=== PATIENT | female | born 1995 | race Caucasian/White ===

== ENCOUNTER 2017-05-30 23:07 | Emergency (ER) | payer MEDICAID, OTHER ==
[2017-05-30 23:56] LABS: HCG,QUALITATIVE URINE NEGATIVE (NEGATIVE)
[2017-05-30 23:57] LABS: SQUAMOUS EPITHIAL 7 /hpf (0-5); URINE BACTERIA RARE (<OCC); URINE BILIRUBIN NEGATIVE (NEGATIVE); URINE BLOOD NEGATIVE (NEGATIVE); URINE CLARITY Clear (Clear); URINE COLOR Yellow (YELLOW); URINE GLUCOSE (UA) NORMAL (Normal); URINE LEUKOCYTE ESTERASE NEG Leu/uL (Negative); URINE NITRATE NEGATIVE (NEGATIVE); URINE PROTEIN NEGATIVE (NEGATIVE)
[2017-05-31] MEDS ORDERED: Sodium Chloride 0.9% 1,000 ML IV ONE (00:04)
--- NOTE | 2017-05-31 00:04 | C.PDOC ---
History Of Present Illness Patient presents to the ED with complaints of sudden onset of nausea and vomiting beginning at 4pm today. Patient states she had hash browns for breakfast but currently is unable to tolerate PO. Patient denies fever, diarrhea , or abdominal pain. Time Seen by Provider: 05/31/17 00:04 Chief Complaint (Nursing): Abdominal Pain History Per: Patient History/Exam Limitations: no limitations Onset/Duration Of Symptoms: Hrs (since 4pm ) Current Symptoms Are (Timing): Still Present Severity: Moderate Pain Scale Rating Of: 4 Radiation Of Pain To:: None Associated Symptoms: Nausea, Vomiting. denies: Fever, Chills, Diarrhea Last Bowel Movement: Yesterday Recent travel outside of the [place]: No Additional History Per: Family Abnormal Vaginal Bleeding: No Past Medical History Reviewed: Historical Data, Nursing Documentation, Vital Signs Vital Signs: Last Vital Signs Temp 99.9 F H 05/30/17 23:40 Pulse 105 H 05/30/17 23:40 Resp 18 05/30/17 23:40 BP 112/70 05/30/17 23:40 Pulse Ox 98 05/31/17 04:13 Family History: States: No Known Family Hx - Social History Hx Alcohol Use: Yes Hx Substance Use: No - Immunization History Hx Influenza Vaccination: No Review Of Systems Constitutional: Negative for: Fever, Chills Eyes: Negative for: Redness ENT: Negative for: Throat Pain Cardiovascular: Negative for: Chest Pain, Palpitations Respiratory: Negative for: Cough, Shortness of Breath Gastrointestinal: Positive for: Nausea, Vomiting. Negative for: Abdominal Pain , Diarrhea Genitourinary: Negative for: Dysuria Musculoskeletal: Negative for: Back Pain Skin: Negative for: Rash, Lesions, Jaundice Neurological: Negative for: Weakness, Headache Psych: Negative for: Anxiety Physical Exam - Physical Exam Appears: Non-toxic, No Acute Distress Skin: Warm, Dry Head: Normacephalic Eye(s): bilateral: Normal Inspection Oral Mucosa: Moist Throat: No Erythema Neck: Supple Chest: Symmetrical, No Deformity Cardiovascular: Rhythm Regular Respiratory: No Rales, No Rhonchi, No Wheezing Gastrointestinal/Abdominal: Soft, Tenderness (diffuse tenderness mostly in the RLQ ), No Distention, No Guarding, No Rebound Extremity: Normal ROM, No Tenderness Extremity: Bilateral: Atraumatic, Normal Color And Temperature, Normal ROM Neurological/Psych: Oriented x3 ED Course And Treatment - Laboratory Results Result Diagrams: 05/31/17 00:09 05/31/17 00:09 O2 Sat by Pulse Oximetry: 98 (room air ) Pulse Ox Interpretation: Normal Reevaluation Time: 04:10 Reassessment Condition: Improved Disposition Counseled Patient/Family Regarding: Studies Performed, Diagnosis, Need For Followup, Rx Given - Disposition Referrals: [facility] [Outside] [facility] [Outside] Disposition: HOME/ ROUTINE Disposition Time: 00:04 Condition: FAIR Prescriptions: Metronidazole [Flagyl] 500 mg PO TID #21 tablet Ondansetron ODT [Zofran ODT] 1 odt PO BID PRN #10 odt PRN Reason: Nausea/Vomiting Instructions: Abdominal Pain (ED), Enteritis (ED) - Clinical Impression Clinical Impression: Abdominal pain, Enteritis - Scribe Statement The provider has reviewed the documentation as recorded by the Scribe Mia Spears All medical record entries made by the Scribe were at my direction and personally dictated by me. I have reviewed the chart and agree that the record accurately reflects my personal performance of the history, physical exam, medical decision making, and the department course for this patient. I have also personally directed, reviewed, and agree with the discharge instructions and disposition.
[2017-05-31 00:11] LABS: BASO % 0.3 % (0.0-2.0); EOS % 0.3 % (0.0-4.0); HEMOGLOBIN 12.7 g/dL (11.0-16.0); LYMPH # 0.4 K/uL (1.0-4.3); LYMPH % 2.6 % (20.0-40.0); MEAN CELL VOLUME 84.9 fL (81.0-99.0); MEAN CORPUSCULAR HEMOGLOBIN 28.3 pg (27.0-31.0); MEAN CORPUSCULAR HGB CONC 33.3 g/dL (33.0-37.0); MONO # 0.4 K/uL (0.0-0.8); MONO % 3.2 % (0.0-10.0); NEUT # 13.3 K/uL (1.8-7.0); NEUT % 93.6 % (50.0-75.0); PLATELET COUNT 247 K/uL (130-400); RBC 4.49 Mil/uL (3.80-5.20); RED CELL DISTRIBUTION WIDTH 12.4 % (11.5-14.5); WHITE BLOOD COUNT 14.2 K/uL (4.8-10.8)
[2017-05-31] MEDS ORDERED: Sodium Chloride 0.9% 1,000 ML ONE (00:16)
[2017-05-31] MEDS ORDERED: Piperacillin/Tazobact 3.375 gm 100 ML IVPB STA (00:24)
[2017-05-31 00:27] LABS: ALBUMIN 4.4 g/dL (3.5-5.0)
[2017-05-31 00:28] LABS: INR 1.1; PROTHROMBIN TIME 12.2 SECONDS (9.7-12.2)
[2017-05-31 00:30] LABS: AST/SGOT 21 U/L (14-36); GFR AFRICAN-AMERICAN > 60; GFR NON-AFRICAN AMERICAN > 60
[2017-05-31 00:31] LABS: ALB/GLOB RATIO 1.3 (1.0-2.1); ALT/SGPT 14 U/L (9-52); BLOOD UREA NITROGEN 13 mg/dL (7-17); CALCIUM 9.1 mg/dl (8.6-10.4); LIPASE 24 U/L (23-300)
[2017-05-31] MEDS ORDERED: DiphenhydrAMINE 50 mg/ml Inj IVP STA (00:36)
[2017-05-31] MEDS ORDERED: Piperacillin/Tazobact 3.375 gm 100 ML IVPB ONE (00:56)
[2017-05-31] MEDS ORDERED: Iodixanol 320 MG/ML 100 ML BOTTLE IV ONE (01:03)
[2017-05-31] MEDS ORDERED: DiphenhydrAMINE 50 mg/ml Inj ONE (01:26)
[2017-05-31 01:29] LABS: BANDS 5 % (0-2); LYMPHOCYTE 2 % (20-40); MONOCYTE 2 % (0-10); NEUTROPHIL 91 % (50-75); PLATELET ESTIMATE NORMAL (NORMAL); TOTAL CELLS COUNTED 100
[2017-05-31] MEDS ORDERED: Iodixanol 320 mg/ml 150 ml Bottle IV ONE ×2 (02:01→02:02)
[2017-05-31] MEDS ORDERED: Iodixanol 320 MG/ML 200 ML BOTTLE IV ONE (02:02)
--- NOTE | 2017-05-31 02:53 | CT ---
EXAM: CT Angiography Chest With Intravenous Contrast CLINICAL HISTORY: 22 years old, female; Pain; Chest pain and other: Abdomen; Additional info: Rlq pain, leukocytosis TECHNIQUE: Axial computed tomographic angiography images of the chest with intravenous contrast using pulmonary embolism protocol. This CT exam was performed using one or more of the following dose reduction techniques: automated exposure control, adjustment of the mA and/or kV according to patient size, and/or use of iterative reconstruction technique. MIP reconstructed images were created and reviewed. Coronal and sagittal reformatted images were created and reviewed. CONTRAST: 100 mL of [id number] administered intravenously. COMPARISON: No relevant prior studies available. FINDINGS: Pulmonary arteries: No pulmonary embolism. Aorta: No thoracic aortic aneurysm. Lungs: No mass. No consolidation. Pleural spaces: No significant effusion. No pneumothorax. Heart: No cardiomegaly. No significant pericardial effusion. No evidence of right heart dysfunction. Bones: No acute fracture. Lymph nodes: No pathologically enlarged lymph nodes. IMPRESSION: No pulmonary embolism. The lungs are clear.
--- NOTE | 2017-05-31 03:01 | CT ---
EXAM: CT Abdomen and Pelvis With Intravenous Contrast CLINICAL HISTORY: 22 years old, female; Pain; Abdominal pain and other: Lower right abd; Additional info: Abd pain. Lower right TECHNIQUE: Axial computed tomography images of the abdomen and pelvis with intravenous contrast. This CT exam was performed using one or more of the following dose reduction techniques: automated exposure control, adjustment of the mA and/or kV according to patient size, and/or use of iterative reconstruction technique. Coronal and sagittal reformatted images were created and reviewed. CONTRAST: 100 mL of [id number] administered intravenously. COMPARISON: None. FINDINGS: Lower thorax: The bilateral lung bases are clear. ABDOMEN: Liver: No acute findings. Gallbladder and bile ducts: The gallbladder is decompressed. No calcified stones. No significant intra- or extrahepatic biliary ductal dilation. Pancreas: Enhances homogeneously. No ductal dilation. No discrete mass. Spleen: No acute findings. Adrenals: No acute findings. Kidneys and ureters: No acute findings. No hydronephrosis or renal calculi. No discrete solid mass. PELVIS: Bladder: No acute findings. Reproductive: No acute findings. Appendix: The air filled appendix is of normal caliber (series 8, image 61; series 604, image 61) . ABDOMEN and PELVIS: Stomach and bowel: No obstruction. Mural thickening of multiple loops of small bowel, without surrounding inflammation or fluid to confirm an acute enteritis. Peritoneum: As above. Lymph nodes: No pathologically enlarged lymph nodes. Vasculature: Unremarkable. Bones: No acute fracture. IMPRESSION: Normal appendix. Mural thickening of multiple loops of small bowel, without surrounding inflammation or fluid to confirm an acute enteritis.
[2017-05-31 04:51] VITALS: BP 106/67; PULSE 69; RESP 16; TEMP 98.5; O2SAT 97
== END 2017-05-31 04:59 | disposition home or self-care (01) ==
LOC: C.ER 23:07
DX: K52.9 Noninfective gastroenteritis and colitis, unspecified (principal); R10.9 Unspecified abdominal pain
CPT/HCPCS: 71275; 74177; 80053; 81001; 83690; 84703; 85025; 85610; 85730; 96365; 96375; 99284; J1200; J2405; J2543; J2930; J7040; Q9965; Q9966; Q9967

== ENCOUNTER 2018-02-03 02:42 | Emergency (ER) | payer SELFPAY ==
[2018-02-03] MEDS ORDERED: Sodium Chloride 0.9% 1,000 ML IV ONE (02:59)
--- NOTE | 2018-02-03 02:59 | C.PDOC ---
History Of Present Illness Patient presents to the ER with a complaint of sudden onset of a sharp, cramping , right lower abdominal pain that began at approximately 21:30, associated with one episode of vomiting. Denies fever, chills, dysuria, or vaginal bleeding. Time Seen by Provider: 02/03/18 02:59 Chief Complaint (Nursing): Abdominal Pain History Per: Patient History/Exam Limitations: no limitations Onset/Duration Of Symptoms: Hrs, Sudden Onset Current Symptoms Are (Timing): Still Present Severity: Moderate Pain Scale Rating Of: 5 Location Of Pain/Discomfort: RLQ Radiation Of Pain To:: None Quality Of Discomfort: Sharp, Cramping Associated Symptoms: Vomiting. denies: Fever, Chills, Urinary Symptoms Exacerbating Factors: None Alleviating Factors: None Recent travel outside of the [place]: No Additional History Per: Patient Abnormal Vaginal Bleeding: No Past Medical History Reviewed: Historical Data, Nursing Documentation, Vital Signs Vital Signs: Last Vital Signs Temp 98.4 F 02/03/18 04:42 Pulse 70 02/03/18 04:42 Resp 20 02/03/18 04:42 BP 139/80 02/03/18 04:42 Pulse Ox 98 02/03/18 04:42 Family History: States: No Known Family Hx - Social History Hx Alcohol Use: Yes Hx Substance Use: No - Immunization History Hx Tetanus Toxoid Vaccination: No Hx Influenza Vaccination: No Hx Pneumococcal Vaccination: No Review Of Systems Constitutional: Negative for: Fever, Chills Cardiovascular: Negative for: Chest Pain Respiratory: Negative for: Shortness of Breath Gastrointestinal: Positive for: Vomiting, Abdominal Pain Genitourinary: Negative for: Dysuria, Vaginal Bleeding Skin: Negative for: Rash Neurological: Negative for: Weakness Psych: Negative for: Anxiety Physical Exam - Physical Exam Appears: Non-toxic, Other (Mild discomfort) Skin: Warm, Dry Head: Normacephalic Eye(s): bilateral: Normal Inspection Oral Mucosa: Moist Neck: Supple Chest: Symmetrical, No Tenderness Cardiovascular: Rhythm Regular Respiratory: No Rales, No Rhonchi, No Wheezing Gastrointestinal/Abdominal: Soft, Tenderness (RLQ), Guarding (Voluntary), Rebound (Mild) Back: Normal Inspection, No CVA Tenderness Extremity: Normal ROM Extremity: Bilateral: Atraumatic Neurological/Psych: Oriented x3 Gait: Steady ED Course And Treatment - Laboratory Results Result Diagrams: 02/03/18 03:09 02/03/18 03:09 O2 Sat by Pulse Oximetry: 99 (Room air) Pulse Ox Interpretation: Normal Progress Note: Blood work and urinalysis ordered. Benadryl, pepcid, solumedrol, zofran, zosyn, and IV fluids administered. Reevaluation Time: 05:30 Reassessment Condition: Improved Disposition Counseled Patient/Family Regarding: Studies Performed, Diagnosis, Need For Followup, Rx Given - Disposition Referrals: [facility] [Outside] [facility] [Outside] Disposition: HOME/ ROUTINE Disposition Time: 02:59 Condition: FAIR Additional Instructions: Please return if symptoms recur Prescriptions: Levofloxacin [Levaquin] 500 mg PO DAILY #10 tablet Ondansetron ODT [Zofran ODT] 1 odt PO BID PRN #6 odt PRN Reason: Nausea/Vomiting traMADol [Ultram] 50 mg PO QID #20 tab Instructions: Urinary Tract Infection, Adult (DC) Forms: [facility] (Lao), Work Excuse - Clinical Impression Clinical Impression: Abdominal pain, UTI (urinary tract infection), Mesenteric adenitis - Scribe Statement The provider has reviewed the documentation as recorded by the Scribe [place]f [place] All medical record entries made by the Scribe were at my direction and personally dictated by me. I have reviewed the chart and agree that the record accurately reflects my personal performance of the history, physical exam, medical decision making, and the department course for this patient. I have also personally directed, reviewed, and agree with the discharge instructions and disposition.
[2018-02-03 03:05] LABS: SQUAMOUS EPITHIAL 3 /hpf (0-5); URINE BACTERIA RARE (<OCC); URINE BILIRUBIN NEGATIVE (NEGATIVE); URINE BLOOD 3+ (NEGATIVE); URINE CLARITY Hazy (Clear); URINE COLOR Yellow (YELLOW); URINE GLUCOSE (UA) NORMAL (Normal); URINE LEUKOCYTE ESTERASE TRACE Leu/uL (Negative); URINE PROTEIN NEGATIVE (NEGATIVE); URINE UROBILINOGEN NORMAL mg/dL (0.2-1.0)
[2018-02-03] MEDS ORDERED: DiphenhydrAMINE 50 mg/ml Inj IVP STA (03:06)
[2018-02-03 03:13] LABS: BASO % 0.2 % (0.0-2.0); EOS # 0.1 K/uL (0.0-0.7); EOS % 0.4 % (0.0-4.0); HEMOGLOBIN 12.6 g/dL (11.0-16.0); LYMPH # 1.1 K/uL (1.0-4.3); MEAN CELL VOLUME 84.9 fL (81.0-99.0); MEAN CORPUSCULAR HEMOGLOBIN 28.8 pg (27.0-31.0); MEAN CORPUSCULAR HGB CONC 33.9 g/dL (33.0-37.0); MEAN PLATELET VOLUME 9.4 fL (7.2-11.7); MONO # 0.9 K/uL (0.0-0.8); MONO % 4.3 % (0.0-10.0); NEUT # 19.2 K/uL (1.8-7.0); NEUT % 90.1 % (50.0-75.0); PLATELET COUNT 287 K/uL (130-400); RBC 4.38 Mil/uL (3.80-5.20); RED CELL DISTRIBUTION WIDTH 12.8 % (11.5-14.5); WHITE BLOOD COUNT 21.3 K/uL (4.8-10.8)
[2018-02-03] MEDS ORDERED: DiphenhydrAMINE 50 mg/ml Inj ONE (03:16)
[2018-02-03 03:20] LABS: INR 1.2
[2018-02-03] MEDS ORDERED: Piperacillin/Tazobact 3.375 GM in Sodium Chloride 100 ML IVPB STA (03:20)
[2018-02-03 03:24] LABS: ALB/GLOB RATIO 1.3 (1.0-2.1); ALBUMIN 4.7 g/dL (3.5-5.0); ALT/SGPT 40 U/L (9-52); AST/SGOT 28 U/L (14-36); BLOOD UREA NITROGEN 13 mg/dL (7-17); CALCIUM 9.6 mg/dl (8.6-10.4); GFR AFRICAN-AMERICAN > 60; GFR NON-AFRICAN AMERICAN > 60; LIPASE 27 U/L (23-300)
[2018-02-03] MEDS ORDERED: Piperacill/Tazo 3.375gm in Dex 3.375 GM/50 ML BAG IVPB STA (03:39)
[2018-02-03 03:48] LABS: BANDS 2 % (0-2); LYMPHOCYTE 4 % (20-40); MONOCYTE 4 % (0-10); NEUTROPHIL 86 % (50-75); PLATELET ESTIMATE NORMAL (NORMAL); REACTIVE LYMPHOCYTES 4 % (0-0); TOTAL CELLS COUNTED 100
[2018-02-03] MEDS ORDERED: Iodixanol 320 MG/ML 100 ML BOTTLE IV ONE (04:20)
[2018-02-03] MEDS ORDERED: Morphine 4 MG/ML VIAL ONE (04:40)
[2018-02-03 04:44] VITALS: RESP 20; TEMP 98.4
--- NOTE | 2018-02-03 05:08 | CT ---
EXAM: CT Abdomen and Pelvis With Intravenous Contrast CLINICAL HISTORY: 22 years old, female; Pain; Abdominal pain; Patient HX: 7 images sent; Additional info: Rlq pain TECHNIQUE: Axial computed tomography images of the abdomen and pelvis with intravenous contrast. All CT scans at this facility use one or more dose reduction techniques, viz.: automated exposure control; ma/kV adjustment per patient size (including targeted exams where dose is matched to indication; i.e. head); or iterative reconstruction technique. 734 images are submitted. Coronal and sagittal reformatted images were created and reviewed. CONTRAST: 100 mL of [id number] administered intravenously. COMPARISON: CT - ABD PELVIS IV CONTRAST ONLY 2017-05-31 02:38 FINDINGS: Lower thorax: Mild right and trace left lower lobe parenchymal infiltrate. Correlation with clinical data is recommended if atelectasis versus pneumonia is clinically suspected. ABDOMEN: Liver: Fatty liver.There is a focal liver hypodensity that cannot be further characterized on the current examination. Gallbladder and bile ducts: Unremarkable. No ductal dilation. Pancreas: Unremarkable. No mass. No ductal dilation. Spleen: Left upper quadrant splenules. Unremarkable spleen. Adrenals: Unremarkable. No mass. Kidneys and ureters: Unremarkable. No solid mass. No hydronephrosis. Stomach and bowel: Diverticulosis. There are nonspecific fluid filled small bowel loops. These findings can represent ileus versus enteritis versus slow transit versus peristalsis. Appendix: Normal appendix. PELVIS: Bladder: Unremarkable. Reproductive: Endometrial stripe thickening and/or fluid. Bilateral ovarian follicles. ABDOMEN and PELVIS: Intraperitoneal space: Small amount of free pelvic fluid. No free air. Bones/joints: No acute fracture. No dislocation. Soft tissues: Unremarkable. Vasculature: Unremarkable. No abdominal aortic aneurysm. Lymph nodes: Multiple subcentimeter mesenteric and ileocolic lymph nodes. Findings are nonspecific but may represent mesenteric adenitis. IMPRESSION: 1. Mild right and trace left lower lobe parenchymal infiltrate. Correlation with clinical data is recommended if atelectasis versus pneumonia is clinically suspected. 2. Small amount of free pelvic fluid.
[2018-02-03 05:37] VITALS: O2SAT 99
[2018-02-03 05:49] VITALS: BP 132/84; PULSE 92
== END 2018-02-03 06:04 | disposition home or self-care (01) ==
LOC: SUPCPDRO 02:42 → C.ER 02:42
DX: N39.0 Urinary tract infection, site not specified (principal); I88.0 Nonspecific mesenteric lymphadenitis; R10.30 Lower abdominal pain, unspecified
CPT/HCPCS: 74177; 80053; 81001; 83690; 84703; 85025; 85610; 85730; 96361; 96365; 96375; 99285; J1200; J1885; J2270; J2405; J2543; J2930; J7040; Q9967

== ENCOUNTER 2019-01-10 12:46 | Emergency (ER) | payer MEDICAID, OTHER ==
[2019-01-10 13:33] LABS: SQUAMOUS EPITHIAL 56 /hpf (0-5); URINE BACTERIA RARE (<OCC); URINE BILIRUBIN NEGATIVE (NEGATIVE); URINE BLOOD NEGATIVE (NEGATIVE); URINE CLARITY Hazy (Clear); URINE COLOR Amber (YELLOW); URINE GLUCOSE (UA) NORMAL (Normal); URINE LEUKOCYTE ESTERASE 2+ Leu/uL (Negative); URINE PROTEIN NEGATIVE (NEGATIVE); URINE UROBILINOGEN NORMAL mg/dL (0.2-1.0)
--- NOTE | 2019-01-10 14:12 | OBHP ---
Datetime: 01/10/2019 13:19 IP Adm Impression: , intrauterine IP Chief Complaint Other: Abdominal pain Admit Comment, IP Provider: Patient is a 23 year old at 31w2d SCOTT 03/12/19 by LMP who presents t jose angel for decreased movement that started this morning. Patient states that baby is now moving n ormally. She also reports having right sided abdominal cramping that started to get worse today. Pain is intermittent and rates the pain a 6/10 on pain scale. Last intercourse was two weeks ago. She den ies any VB or LOF. Issues: Denies OB Hx: IAB x 2 with D+C [employer] Hx: LMP 05/16/18 [place]: 12 x regular x 5 days Denies ovarian cysts, fibroids, abnormal pap smears Hx of gonorrhea at 9 weeks IUP, treated Allergies: Shrimp Medications: PNV Medical History: Denies Surgical History: D+C x2 Social History: Denies alcohol, tobacco, drug use Family History: Mother - Hypertension; Father - unknown PE: See above A/P: 23 year old at 31w2d who presents with decreased FM and abdominal pain -Not in labor -NST reactive, Category I tracing -Will send Urinalysis -Plan discussed with Dr Peggy Evans DO PGY-2 FHR - Baseline A Provider: 140 Contraction Comments Provider: none Comments, ACOG Physical Exam: Vital signs reviewed Gen: NAD, AAOx3 Abdomen: Soft, gravid, fundal height Ext: No clubbing, cyanosis, edema SVE: closed/thick/high EGA AdmitDate IP: 31.2 Vital Signs Provider: Reviewed IP Chief Complaint: Decreased movement; Other NICHD Variability Prov Fetus A: Moderate 6-25bpm NICHD Accel Fetus A IP Provider: 15X15 FHR Category Provider Fetus A: Category I NICHD Decel Fetus A IP Provider: None Dilatation, Provider: closed
--- NOTE | 2019-01-10 14:13 | OBDCSUM ---
Datetime: 01/10/2019 13:43 Discharged to, Provider: Home Follow up at, Provider: with [facility] Disch Instr Activity: Normal activity Disch Instr Diet: Regular Discharge Time: 01/10/2019 14:02 Follow up in weeks, Provider: 2-3 Disch Referrals: None Discharge Comment, Provider: janelle marquez hy f/u in 2-3 Discharge Diagnosis Prov Other: 33we nst
[2019-01-10 18:25] VITALS: BP 123/70; PULSE 88; RESP 17; TEMP 99.7; O2SAT 99
== END 2019-01-10 14:21 | disposition home or self-care (01) ==
LOC: C.EROB 12:46
DX: O36.8130 Decreased fetal movements, third trimester, not applicable or unspecified (principal); Z3A.31 31 weeks gestation of pregnancy

== ENCOUNTER 2019-02-14 19:45 | Emergency (ER) | payer OTHER ==
[2019-02-14 20:23] VITALS: BMI 36.8
[2019-02-14 20:49] LABS: SQUAMOUS EPITHIAL 9 /hpf (0-5); URINE AMORPHOUS SEDIMENT RARE /ul (<OCC); URINE BACTERIA OCC (<OCC); URINE BILIRUBIN NEGATIVE (NEGATIVE); URINE BLOOD NEGATIVE (NEGATIVE); URINE CLARITY Hazy (Clear); URINE COLOR Yellow (YELLOW); URINE GLUCOSE (UA) NORMAL (Normal); URINE LEUKOCYTE ESTERASE 1+ Leu/uL (Negative); URINE PROTEIN NEGATIVE (NEGATIVE); URINE UROBILINOGEN NORMAL mg/dL (0.2-1.0)
[2019-02-14] MEDS ORDERED: Lactated Ringer's 1,000 ML IV ONE (20:56)
[2019-02-14 21:32] LABS: EOS # 0.2 K/uL (0.0-0.7); EOS % 2.1 % (0.0-4.0); LYMPH % 13.1 % (20.0-40.0); MEAN CELL VOLUME 83.8 fL (81.0-99.0); MEAN CORPUSCULAR HEMOGLOBIN 28.1 pg (27.0-31.0); MEAN CORPUSCULAR HGB CONC 33.5 g/dL (33.0-37.0); MEAN PLATELET VOLUME 9.9 fL (7.2-11.7); MONO # 0.4 K/uL (0.0-0.8); MONO % 5.6 % (0.0-10.0); NEUT # 6.2 K/uL (1.8-7.0); NEUT % 79.2 % (50.0-75.0); RBC 3.9 Mil/uL (3.80-5.20); RED CELL DISTRIBUTION WIDTH 14.5 % (11.5-14.5); WHITE BLOOD COUNT 7.8 K/uL (4.8-10.8)
[2019-02-14 21:44] LABS: ALB/GLOB RATIO 1.2 (1.0-2.1); ALBUMIN 3.3 g/dL (3.5-5.0); ALT/SGPT 8 U/L (9-52); AST/SGOT 14 U/L (14-36); BLOOD UREA NITROGEN 4 mg/dL (7-17); GFR NON-AFRICAN AMERICAN > 60
[2019-02-14 22:43] LABS: BARBITURATES, UR NEGATIVE (NEGATIVE); BENZODIAZEPINES, UR NEGATIVE (NEGATIVE); OPIATES, UR NEGATIVE (NEGATIVE); PHENCYCLIDINE, UR NEGATIVE (NEGATIVE)
[2019-02-14 22:48] LABS: CREATININE, RANDOM URINE 18.9 mg/dL
--- NOTE | 2019-02-14 23:47 | OBHP ---
Datetime: 02/14/2019 21:30 IP Adm Impression: , intrauterine ; No Active Labor; Intact Membranes IP Chief Complaint Other: Abdominal and Pelvic pain IP Admit Plan: Discharge home Admit Comment, IP Provider: 24 cr[place] female with and IUP at 36.2 weeks and presented with c/o of some generalized abdominal and pelvic pain. Admitted to adequate FM and denies LOF, VB or VD. Denies urinary or bowel complaints. PMHx and PSHx: Negative Meds PNV NKDA + Allergy to Shrimp Meds: PNV Social Hx: Negative x 3 PE See above A/P UA and blood work negative NST reactive UC's irregular and moderately painful. Declined pain medication One dose of 'terbutaline given after IV Hydration and contractions ressolved Pt remained stable Pelvic Type - PN: Adequate Extremities - PN: Normal Abdomen - PN: Normal Back - PN: Normal Breast - PN: Not Done Lungs - PN: Normal Heart - PN: Normal Thyroid - PN: Normal Neurologic - PN: Normal HEENT - PN: Normal General - PN: Normal Presentation-Admit: Vertex FHR - Baseline A Provider: 130 Membranes, Provider: Intact Contraction Comments Provider: Irregular Gestation - Est Wks by US: 36.2 IP Hx Assessment: The History has been Reviewed and is Current EGA AdmitDate IP: 36.2 Vital Signs Provider: Reviewed; Within Normal Limits IP Chief Complaint: Maternal discomfort; Other NICHD Variability Prov Fetus A: Moderate 6-25bpm NICHD Accel Fetus A IP Provider: 10X10 FHR Category Provider Fetus A: Category I NICHD Decel Fetus A IP Provider: None Dilatation, Provider: 0 Effacement, Provider: 30 Station, Provider: -3 Genitourinary Exam: Normal DTRs - PN: Normal
--- NOTE | 2019-02-14 23:52 | OBADHP ---
Datetime: 02/14/2019 21:30 IP Chief Complaint Other: Abdominal and Pelvic pain Admit Comment, IP Provider: 24 crist[place] female with and IUP at 36.2 weeks and presented with c/o of some generalized abdominal and pelvic pain. Admitted to adequate FM and denies LOF, VB or VD. Denies urinary or bowel complaints. PMHx and PSHx: Negative Meds PNV NKDA + Allergy to Shrimp Meds: PNV Social Hx: Negative x 3 PE See above A/P UA and blood work negative NST reactive UC's irregular and moderately painful. Declined pain medication One dose of 'terbutaline given after IV Hydration and contractions ressolved Pt remained stable Pelvic Type - PN: Adequate Extremities - PN: Normal Abdomen - PN: Normal Back - PN: Normal Breast - PN: Not Done Lungs - PN: Normal Heart - PN: Normal Thyroid - PN: Normal Neurologic - PN: Normal HEENT - PN: Normal General - PN: Normal Presentation-Admit: Vertex FHR - Baseline A Provider: 130 Membranes, Provider: Intact Contraction Comments Provider: Irregular Gestation - Est Wks by US: 36.2 IP Hx Assessment: The History has been Reviewed and is Current Vital Signs Provider: Reviewed; Within Normal Limits IP Chief Complaint: Maternal discomfort; Other NICHD Variability Prov Fetus A: Moderate 6-25bpm NICHD Accel Fetus A IP Provider: 10X10 FHR Category Provider Fetus A: Category I NICHD Decel Fetus A IP Provider: None Dilatation, Provider: 0 Effacement, Provider: 30 Station, Provider: -3 Genitourinary Exam: Normal DTRs - PN: Normal EGA AdmitDate IP: 36.2 IP Adm Impression: , intrauterine ; No Active Labor; Intact Membranes IP Admit Plan: Discharge home Datetime: 01/10/2019 13:19 Comments, ACOG Physical Exam: Vital signs reviewed Gen: NAD, AAOx3 Abdomen: Soft, gravid, fundal height Ext: No clubbing, cyanosis, edema SVE: closed/thick/high
--- NOTE | 2019-02-14 23:55 | OBDCSUM ---
Datetime: 02/14/2019 23:50 Discharged to, Provider: Home Follow up at, Provider: [facility] Follow up at, Provider: [facility] Disch Instr Activity: Normal activity; Bedrest Disch Instr Diet: Regular Discharge Instructions, Provider: Routine instructions given Discharge Time: 02/14/2019 23:51 Follow up in weeks, Provider: AM apppointment Follow up in weeks, Provider: 02/15/19 Disch Referrals: None Disch Referrals: None Contraception discussed, Prov: Yes Disch Activity Restrictions: No exercising; No lifting; Minimize stair-climbing; No sexual activity; Nothing in vagina - [place], tampons, douche Discharge Comment, Provider: 24 yo female with and IUP at 36.2 weeks and presented with c/o of some generalized abdominal and pelvic pain. Admitted to adequate FM and denies LOF, VB or VD. Denies urinary or bowel complaints. PMHx and PSHx: Negative Meds PNV NKDA + Allergy to Shrimp Meds: PNV Social Hx: Negative x 3 PE See above A/P UA and blood work negative NST reactive UC's irregular and moderately painful. Declined pain medication One dose of 'terbutaline given after IV Hydration and contractions ressolved Pt remained in stable and satisfactory condition D/C home with labor precautions and verbalized understanding Discharge Diagnosis Prov Other: Irregular contractions Poor pain tolerance Contraception after Delivery: Undecided
[2019-02-15 04:32] VITALS: BP 130/67; PULSE 99; RESP 20; TEMP 98.5; O2SAT 99
== END 2019-02-15 00:10 | disposition home or self-care (01) ==
LOC: C.EROB 19:45
DX: O26.893 Other specified pregnancy related conditions, third trimester (principal); R10.2 Pelvic and perineal pain; R10.84 Generalized abdominal pain; Z3A.36 36 weeks gestation of pregnancy
CPT/HCPCS: 80053; 80324; 80345; 80346; 80349; 80353; 80358; 80361; 81001; 82570; 83615; 83992; 84156; 84550; 85025; 96372; 99283; J3105; J7120

== ENCOUNTER 2019-03-14 09:45 | Emergency (ER) | payer OTHER ==
--- NOTE | 2019-03-14 10:34 | OBHP ---
Datetime: 03/14/2019 10:30 IP Adm Impression: Postterm, intrauterine Admit Comment, IP Provider: at 40+weks came with c/o cts started in am , irrg , 04/06,no vbm, lo f+fm obhx 2 x ta pmh de med pnv all nkda psh de soch de ve /-3 a/p at 40+weeks r/o laborr npo/ivf repeat exam cont close observation Pelvic Type - PN: Adequate Extremities - PN: Normal Abdomen - PN: Normal Back - PN: Normal Breast - PN: Normal Lungs - PN: Normal Heart - PN: Normal Thyroid - PN: Normal Neurologic - PN: Normal HEENT - PN: Normal General - PN: Normal FHR - Baseline A Provider: 130 Contraction Comments Provider: q1-4 EGA AdmitDate IP: 40.5 Vital Signs Provider: Reviewed; Within Normal Limits IP Chief Complaint: Uterine contractions NICHD Variability Prov Fetus A: Moderate 6-25bpm NICHD Accel Fetus A IP Provider: 15X15 FHR Category Provider Fetus A: Category I Dilatation, Provider: 1 Effacement, Provider: 50 Station, Provider: -3 Genitourinary Exam: Normal DTRs - PN: Normal
[2019-03-14 17:05] VITALS: BP 134/71; PULSE 79
--- NOTE | 2019-03-15 11:50 | OBHP ---
Datetime: 03/14/2019 10:30 Admit Comment, IP Provider: at 40+weks came with c/o cts started in am , irrg , 04/06,no vbm, lo f+fm obhx 2 x ta pmh de med pnv all nkda psh de soch de ve /-3 a/p at 40+weeks r/o laborr npo/ivf repeat exam cont close observation 12.30 pt was rexamined ve /3 plan induction on 03/15 labor ins give p hy f
== END 2019-03-14 12:40 | disposition home or self-care (01) ==
LOC: C.EROB 09:45
DX: O47.1 False labor at or after 37 completed weeks of gestation (principal); Z3A.40 40 weeks gestation of pregnancy

== ENCOUNTER 2019-03-15 19:33 | Inpatient (IN) | payer OTHER ==
[2019-03-15 19:52] VITALS: BMI 39.0
[2019-03-15] MEDS ORDERED: Lactated Ringer's 1,000 ML IV ONE (20:16)
[2019-03-15 21:03] LABS: BASO % 0.2 % (0.0-2.0); EOS % 0.5 % (0.0-4.0); HEMOGLOBIN 11.4 g/dL (11.0-16.0); LYMPH # 0.5 K/uL (1.0-4.3); LYMPH % 7.3 % (20.0-40.0); MEAN CELL VOLUME 83.4 fL (81.0-99.0); MEAN CORPUSCULAR HEMOGLOBIN 28.2 pg (27.0-31.0); MEAN CORPUSCULAR HGB CONC 33.8 g/dL (33.0-37.0); MEAN PLATELET VOLUME 10.4 fL (7.2-11.7); MONO # 0.3 K/uL (0.0-0.8); MONO % 4.5 % (0.0-10.0); NEUT % 87.5 % (50.0-75.0); PLATELET COUNT 167 K/uL (130-400); RBC 4.03 Mil/uL (3.80-5.20); RED CELL DISTRIBUTION WIDTH 14.4 % (11.5-14.5); WHITE BLOOD COUNT 6.9 K/uL (4.8-10.8)
--- NOTE | 2019-03-15 21:04 | OBHP ---
Datetime: 03/15/2019 20:47 IP Adm Impression: Postterm, intrauterine IP Admit Plan: Initiate labor induction protocol EGA AdmitDate IP: 40.6 IP Chief Complaint: Scheduled induction of labor
[2019-03-15 21:07] LABS: SQUAMOUS EPITHIAL 11 /hpf (0-5); URINE BACTERIA FEW (<OCC); URINE BILIRUBIN NEGATIVE (NEGATIVE); URINE BLOOD NEGATIVE (NEGATIVE); URINE CLARITY Hazy (Clear); URINE COLOR Yellow (YELLOW); URINE GLUCOSE (UA) NORMAL (Normal); URINE LEUKOCYTE ESTERASE 2+ Leu/uL (Negative); URINE PROTEIN NEGATIVE (NEGATIVE); URINE UROBILINOGEN NORMAL mg/dL (0.2-1.0)
[2019-03-15 21:17] LABS: ALB/GLOB RATIO 1.2 (1.0-2.1); ALBUMIN 3.5 g/dL (3.5-5.0); ALT/SGPT 9 U/L (9-52); AST/SGOT 24 U/L (14-36); BLOOD UREA NITROGEN 5 mg/dL (7-17); CALCIUM 9.1 mg/dl (8.6-10.4); GFR NON-AFRICAN AMERICAN > 60
[2019-03-15 21:18] LABS: BARBITURATES, UR NEGATIVE (NEGATIVE); BENZODIAZEPINES, UR NEGATIVE (NEGATIVE); OPIATES, UR NEGATIVE (NEGATIVE); PHENCYCLIDINE, UR NEGATIVE (NEGATIVE)
[2019-03-15 21:45] LABS: BANDS 1 % (0-2); LYMPHOCYTE 6 % (20-40); MONOCYTE 2 % (0-10); NEUTROPHIL 91 % (50-75); TOTAL CELLS COUNTED 100
[2019-03-15 21:46] LABS: PLATELET ESTIMATE NORMAL (NORMAL)
[2019-03-15] MEDS: Lactated Ringer's 1,000 ML IV SCH (22:15)
--- NOTE | 2019-03-15 23:54 | OBADHP ---
Datetime: 03/15/2019 20:47 Admit Comment, IP Provider: 24 yo female with an IUP at 40.6 weeks and admitted for IOL sec ondary to Postdates. Admits to adequate FM and ocasional contractions. Denies LOF, VB or VD. Denies a ny complications PMHx Negative PSHx TOP x 2 Meds, PNV/Fe NKDA Social HX Admites to marihuana smoking prior to PE as noted above A/P Postdates Not in labor and admitted for IOL Hx of 2 TOP's + THC during care Negative GBS NST Reactive/ No uterine contractions Unfavorable cervix, very posterior and cervidil placed Admit labs done Will continue monitoring Hope to remove cervidil in AM and start Pitocin Pelvic Type - PN: Adequate Extremities - PN: Normal Abdomen - PN: Normal Back - PN: Normal Breast - PN: Not Done Lungs - PN: Normal Heart - PN: Normal Thyroid - PN: Normal Neurologic - PN: Normal HEENT - PN: Normal General - PN: Normal Presentation-Admit: Vertex FHR - Baseline A Provider: 120 Membranes, Provider: Intact Contraction Comments Provider: Ocassional Gestation - Est Wks by US: 40.6 IP Hx Assessment: The History has been Reviewed and is Current Vital Signs Provider: Reviewed IP Chief Complaint: Scheduled induction of labor NICHD Variability Prov Fetus A: Moderate 6-25bpm NICHD Accel Fetus A IP Provider: 10X10 FHR Category Provider Fetus A: Category I NICHD Decel Fetus A IP Provider: None Dilatation, Provider: 1 Effacement, Provider: 50 Station, Provider: -3 Genitourinary Exam: Normal DTRs - PN: Normal EGA AdmitDate IP: 40.6 IP Adm Impression: Postterm, intrauterine IP Admit Plan: Initiate labor induction protocol
--- NOTE | 2019-03-16 10:15 | OBPN ---
Datetime: 03/16/2019 09:12 IP Progress Impression: Reassuring heart rate; Reactive non-stress test IP Informed Consent Obtain: Vaginal Delivery IP Procedures: Sterile Vag Exam IP Progress Plan: Cervical Ripening Membranes, Provider: Intact Contraction Comments Provider: Irregular FHR - Baseline A Provider: 120 Gestation - Est Wks by US: 41.0 Presentation-Admit: Vertex IP Progress Note Comment: Pt seen and examined Slept most of the nite Cervidil removed after 12 hours and no cervical change noted Cervix visualized with a speculum and extremely posterior and to the left VSS Shower this morning and had a light breakfast No complaints Second cervidil placed with difficulty because of cervix position Will continue close monitoring Hope for a vaginal delivery Vital Signs Provider: Reviewed NICHD Accel Fetus A IP Provider: 10X10 FHR Category Provider Fetus A: Category I NICHD Variability Prov Fetus A: Moderate 6-25bpm Dilatation, Provider: 1 Effacement, Provider: 50 Station, Provider: -3 NICHD Decel Fetus A IP Provider: None (Annotations: Data stored by CPN on behalf of user)
--- NOTE | 2019-03-16 13:17 | US ---
Date of service: 03/16/2019 PROCEDURE: Biophysical profile/limited ultrasound HISTORY: LGA and extremely posterior/far to the left cervix COMPARISON: None TECHNIQUE: Standard protocol for this study/examination. FINDINGS: FINDINGS: Biophysical profile score 8/8 Based on the followin. breathing movements: 2/2 2. Gross body movement: 2/2 3. tone: 2/2 4. Qualitative amniotic fluid index: 2/2 Amniotic fluid index 6.66 Cephalic presentation. Anterior placenta. No evidence of abruption or previa Gestational age derived from LMP 41 weeks. SCOTT 03/09/2019. Gestational age derived from the following biometric parameters 40 weeks 6 days. SCOTT 03/10/2019. Biparietal diameter 9.91 cm Head circumference 34.77 cm Abdominal circumference 36.51 cm Femur length 8.16 cm Estimated weight 4174 g Calculated cardiac rate 129 beats per min. Closed cervix measuring 4.15 cm IMPRESSION: 40 weeks 6 days live intrauterine gestation. Cephalic presentation. Biophysical profile score 8/8.
[2019-03-16] MEDS ORDERED: cefOXitin IV 2 gm in Dextrose 2 GM/50 ML BAG IVPB ONE ×2 (13:58→15:00)
[2019-03-16] MEDS ORDERED: Sodium Citrate/Citric Acid 15 ml Sol ONE (13:58)
[2019-03-16] MEDS ORDERED: Lactated Ringer's 1,000 ML IV ONE (14:07)
[2019-03-16] MEDS ORDERED: Sodium Citrate/Citric Acid 15 ml Sol PO ONE (14:07)
[2019-03-16] MEDS ORDERED: Oxytocin 20 units in LR 2,000 ML IV ONE (14:30)
--- NOTE | 2019-03-16 14:37 | OBPN ---
Datetime: 03/16/2019 14:14 IP Progress Impression Other: Failed Induction IP Progress Impression: Reassuring heart rate IP Informed Consent Obtain: Section Delivery IP Procedures: Sterile Vag Exam; Ultrasound; Biophysical Profile IP Progress Plan: Anesthesia consult; Antibiotic therapy; Deliver- Section Membranes, Provider: Intact Contraction Comments Provider: Irregular FHR - Baseline A Provider: 120 Gestation - Est Wks by US: 41.0 Presentation-Admit: Vertex IP Progress Note Comment: Pt seen and examined No cervical change FHT's reassuring BPP and Limited OB US revealed and EFW 4174 grams, BPP 8/8 but EDSON 6.6 Failed Induction Suspect Macrosomia Oligohydramnios Far from delivery D/W patient and her family the recomendation for a C/S delivery secondaty to the conditions named above. Procedure, risks and possible complications fully reviewed with the patient, she verbalized un derstanding and requested to proceed. Consent signed. Tableau Analyst, Anesthesia and OR aware and will proceed. Vital Signs Provider: Reviewed; Within Normal Limits NICHD Accel Fetus A IP Provider: 10X10 NICHD Variability Prov Fetus A: Moderate 6-25bpm Dilatation, Provider: 1 Effacement, Provider: 50 Station, Provider: -3 NICHD Decel Fetus A IP Provider: None (Annotations: Data stored by CPN on behalf of user)
[2019-03-16] MEDS ORDERED: Oxytocin 10 Units/ml Inj ONE (14:40)
[2019-03-16] MEDS: Lactated Ringer's 1,000 ML IV SCH ×2 (15:06→22:29)
--- NOTE | 2019-03-16 19:44 | OBDS ---
DELIVERY PERSONNEL Delivery Doctor: Clyde Barber DO Scrub Nurse: Lizzie Keating Video Game Producer: Kira Lazaro RN Anesthesiologist: Denis MATERNAL INFORMATION Delivery Anesthesia: Spinal Medications in Delivery: pitocin 40 Estimated Blood Loss (ml): 600 Placenta Cultured: No Maternal Complications: None Provider Comments: Primary LTC C/S secondary to Failed Induction, Suspected Macrosomia and Alf gohydramnios with delivery of a viable Male from ADAM position. Apgars 9_9 and BW 10lbs, 6oz. Clear fluid noted Cord blood and cord pH collected and sent to lab Placenta with 3 vessel cord and discarded. EBL 600 No complications Bilateral tubes and ovaries WNL Pt and both tolerated the procedure well and remained in the OR in Stable and Satisfactory condition Dr. Abraham assissted the entire procedure, from beginning to end. Dr. Teran attended the LABOR SUMMARY EDC: 03/10/2019 00:00 No. Babies in Womb: 1 Attempted: No LABOR INFORMATION Reason for Induction: Postterm Cervical Ripening Agents: Cervidil Oxytocin: N/A Group B Beta Strep: Negative Antibiotics # of Doses: 1 Antibiotics Time of Last Dose: 1407 Steroids Given: None Reason Steroids Not Administered: Not Applicable MEMBRANES Membranes Rupture Method: Artificial Rupture of Membranes: 03/16/2019 16:39 Length of Rupture (hrs): 0.02 Amniotic Fluid Color: Clear Amniotic Fluid Amount: Small Amniotic Fluid Odor: Normal STAGES OF LABOR Stage 3 hrs: 0 Stage 3 min: 2 VAGINAL DELIVERY Episiotomy: None Laceration Extension: N/A CSECTION DELIVERY Primary Indication: Failed Induction Other Primary Indication: oligohydramnios Secondary Indication: Other Other Secondary Indication: suspected macrosomia CSection Urgency: Non Elective CSection Incidence: Primary Elective: Nonelective CSection Incision: Lower Uterine Transverse BABY A INFORMATION Infant Delivery Date/Time: 03/16/2019 16:40 Method of Delivery: Born in Route : No : N/A Forceps: N/A Vacuum Extraction: N/A Shoulder Dystocia : No SHOULDER DYSTOCIA BABY A Delivery Date/Time: 03/16/2019 16:40 PRESENTATION/POSITION BABY A Presentation: Cephalic Cephalic Presentation: Vertex Vertex Position: Left Occipital Anterior Breech Presentation: N/A PLACENTA INFORMATION BABY A Placenta Delivery Time : 03/16/2019 16:42 Placenta Method of Delivery: Manual Removal Placenta Status: Delivered SCORES BABY A Heart Rate 1 min: >100 bpm Resp Effort 1 min: Good Cry Reflex Irritability 1 min: Cough or Sneeze or Pulls Away Muscle Tone 1 min: Active Motion Color 1 min: Body [place], Extremities Blue Resuscitation Effort 1 min: Tactile Stimulation SCORE 1 MIN: 9 Heart Rate 5 min: >100 bpm Resp Effort 5 min: Good Cry Reflex Irritability 5 min: Cough or Sneeze or Pulls Away Muscle Tone 5 min: Active Motion Color 5 min: Body Lyon, Extremities Blue SCORE 5 MIN: 9 INFORMATION BABY A Gestational Age at Delivery: 41.0 Gestational Status: Post-term Outcome : Liveborn Infant Condition : Stable Sex: Male IDENTIFICATION/MEDS BABY A ID Band Number: [id number] ID Band Location: Left Leg; Left Arm Sensor Applied: Yes Sensor Number: [id number] Sensor Location : Cord Clamp WEIGHT/LENGTH BABY A Infant Birthweight (gms): 4710 Infant Weight (lb): 10 Weight (oz): 6 Length Inches: 20.75 Infant Length cms: 52.7 CORD INFORMATION BABY A No. Cord Vessels: 3 Nuchal Cord : N/A Infant Cord pH Baby Arterial: 6.96 Cord pH Baby Venous: 7.01 Cord Blood Taken: Yes Suction: Mouth; Nose ASSESSMENT BABY A Complications: None Physical Findings at Delivery: Within Normal Limits Respirations: Appears Normal Search Strategist/ALS Called : No Infant Care By: rag cutting machine operator Transferred To: [facility]
[2019-03-16] MEDS: Oxycodone/Acetaminophen 5/325 mg Tab PO PRN (21:53)
[2019-03-17] MEDS: Oxycodone/Acetaminophen 5/325 mg Tab PO PRN ×3 (05:48→20:15)
[2019-03-17] MEDS: Lactated Ringer's 1,000 ML IV SCH (05:50)
[2019-03-17 07:29] LABS: MEAN CELL VOLUME 83.1 fL (81.0-99.0); MEAN CORPUSCULAR HEMOGLOBIN 29.5 pg (27.0-31.0); MEAN CORPUSCULAR HGB CONC 35.6 g/dL (33.0-37.0); MEAN PLATELET VOLUME 10.1 fL (7.2-11.7); RBC 3.39 Mil/uL (3.80-5.20); RED CELL DISTRIBUTION WIDTH 14.2 % (11.5-14.5); WHITE BLOOD COUNT 9.8 K/uL (4.8-10.8)
[2019-03-17 08:00] VITALS: RESP 18
--- NOTE | 2019-03-17 08:15 | OBPPN ---
Datetime: 03/17/2019 08:09 PP Pain Prov: Within normal limits PP Nausea Prov: Denies PP Flatus Prov: No PP BM Prov: No PP Breasts Prov: Normal PP Heart Prov: Normal PP Lungs Prov: Normal PP Abdomen/Uterus Prov: Normal PP Lochia Prov: Normal PP Vulva/Perineum Prov: Normal PP CVA Tenderness Prov: Normal PP Extremities Prov: Normal PP Comments Phys Exam Prov: INCISION: C/D/I EXT: + EDEMA PP Impression Prov: Normal progression PP Plan Prov: Continue present management PP Progress Note Prov: PT DOING WELL. HASN'T AMUBUATED. HAS NOT EATEN YET. NO COMPALINTS OF PAIN VSS: AFEBRILE LABS: Hgb: 10 ABDOMEN: INCISION C/D/I EXT: NO EDEMA. A/P: 24 S/P C/S FOR FAILED IOL POST OP DAY #1 1) VSS: AFEBRILE 2) ANEMIA:HGB 10 - START IRON 3) CIRCUMCISION TODAY/ 4) ROUTINE POST OP CARE.
[2019-03-17] MEDS: Prenatal Multivit/Folic Acid/Iron Tab PO SCH (10:06)
[2019-03-18] MEDS: Oxycodone/Acetaminophen 5/325 mg Tab PO PRN (01:28)
[2019-03-18 08:24] VITALS: O2SAT 98
[2019-03-18] MEDS ORDERED: Magnesium Citrate Oral SOL (300 ml) PO ONE (09:30)
[2019-03-18] MEDS: Oxycodone/Acetaminophen 5/325 mg Tab PO SCH ×3 (10:15→22:04)
[2019-03-18] MEDS: Prenatal Multivit/Folic Acid/Iron Tab PO SCH (10:18)
--- NOTE | 2019-03-18 12:52 | OBPPN ---
Datetime: 03/18/2019 10:36 PP Pain Prov: Abnormal PP Nausea Prov: Denies PP Flatus Prov: No PP BM Prov: No PP Breasts Prov: Not Done PP Heart Prov: Normal PP Lungs Prov: Normal PP Abdomen/Uterus Prov: Abnormal PP Lochia Prov: Normal PP Vulva/Perineum Prov: Not Done PP CVA Tenderness Prov: Normal PP Extremities Prov: Abnormal PP C/S Incision Prov: Normal PP Progress Prov: Abnormal PP Comments Phys Exam Prov: Abdomen distended and tympanic to palpation In tears from pain Not eating or ambulating Drinking little water Fundus firm PP Impression Prov: difficulties; Pain PP Plan Prov: consult PP Impression Other Prov: Mild Ileus PP Plan Other Prov: Increase ambulation and po water PP Progress Note Prov: POD # 2 S/P Primary C/S for Arrest and Macrosomia Post-Op H_H 10.0/28.2/ A+ Started Brestfeeding well but states that in too much pain and decided to give the bottle Counseled extensively re importance of and will increase po water intake and will pl kd baby to breast Q 2 hours A.T.C. consultation requested Will give Magnesium Citrate po now and increase ambulation Pain medication schedule adjusted and advised to take pain medication frequently to be pain free a nd able to move [facility] to discharge home in AM IP PP Procedures Comments: Magnesium Citrate Vital Signs Provider PP: Reviewed; Within Normal Limits
[2019-03-19] MEDS: Oxycodone/Acetaminophen 5/325 mg Tab PO SCH ×2 (03:21→09:51)
[2019-03-19] MEDS: Prenatal Multivit/Folic Acid/Iron Tab PO SCH (09:48)
--- NOTE | 2019-03-19 14:45 | OBDCSUM ---
Datetime: 03/19/2019 08:21 Discharged to, Provider: Home Follow up at, Provider: [facility] Disch Instr Activity: Normal activity Disch Instr Diet: Regular Discharge Instructions, Provider: Routine instructions given Discharge Diagnosis, Provider: Postterm ; Postterm Delivery Discharge Time: 03/19/2019 13:45 Follow up in weeks, Provider: 03-23-19 Disch Referrals: None Disch Activity Restrictions: No exercising; No lifting; Minimize stair-climbing; No sexual activity; Nothing in vagina - [place], tampons, douche Discharge Comment, Provider: Patieint is a 24F who presented on 03/15 @ 40.6 weeks admitted for induction of labor; Currently s/p LTC C/S on 03/16 secondary to failed induction. POD #3 NO acute events reported overnight, denies N/V, currently having BM/Flatus, and voiding adequately . Denies any excessive vaginal discharge / bleeding; Denies any discharge from incision site. Hydrati ng and ambulating appropriately. Currently breast feeding Q2H. Does report diffuse abdominal pain in RLQ/LLQ however reports the pain is improving. Denies any fevers/chills, cp, sob, headaches/ dizziness. VSS Labs reviewed; Hb 11.4>10 Physical Exam: General - Comfortable, NAD Heart - RRR, No murmur Lungs - CTABL, No rales/ronchi/Wheeze Abdomen - Soft, Tenderness in RLQ/LLQ, Uterus at height of umbilicus Lower Extremities: 1+ Edema BL, Distal pulses 2+ BL A/P: 24F s/p LTC C/S POD#3 Stable and Satisfctory condition and recovery Routine Discharge home Discharge instructions given with Rx for Percocet, Motrin, Colace C/w Vitamins Encourage breast feeding, hydration, ambulation Will f/up in the Clinic in 6-7 days for incision check or as needed Patient was seen, examined, and discussed w/ attending physician Margarita Sullivan DO PGY1 Pt seen and examined with Dr. Zacarias and agree with all of his findings, assessment and POC. Discharge Diagnosis Prov Other: Postterm LTC C/S 2/2 failed induction
[2019-03-19 19:33] VITALS: BP 115/69; PULSE 88; TEMP 97.2
== END 2019-03-19 13:45 | disposition home or self-care (01) | DRG 370 ==
LOC: C.EROB 19:33 → C.4D 20:12 → C.4M 03-16 21:45
PROVIDERS: ADMIT Obstetrics & Gynecology; ATTEND Obstetrics & Gynecology
PROC: 10D00Z1 Extraction of Products of Conception, Low, Open Approach (ICD-10-PCS; principal; 2019-03-16)
DX: O61.9 Failed induction of labor, unspecified (principal); O99.02 Anemia complicating childbirth; O48.0 Post-term pregnancy; Z3A.40 40 weeks gestation of pregnancy; O41.03X0 Oligohydramnios, third trimester, not applicable or unspecified; Z37.0 Single live birth